=== PATIENT | male | born 1975 | race African-American/Black ===

== ENCOUNTER 2018-02-24 20:39 | Emergency (ER) | payer SELFPAY ==
[~2018-02-24] VITALS: Ht 195.6 cm; Wt 98.0 kg
[2018-02-25] MEDS ORDERED: IBUPROFEN 600MG TABLET PO ONE (01:30)
[2018-02-25 03:47] VITALS: BP 128/82
== END 2018-02-25 05:06 | disposition home or self-care (01) ==
LOC: ER 20:39
DX: M25.552 Pain in left hip (principal); F12.10 Cannabis abuse, uncomplicated; Z96.642 Presence of left artificial hip joint
CPT/HCPCS: 73502; 99283